=== PATIENT | male | born 1950 | race Hispanic/Latino ===

== ENCOUNTER 2023-11-20 11:04 | Inpatient (IN) | payer MEDICARE ==
[~2023-11-20] VITALS: Ht 172.7 cm; Wt 90.7 kg
[2023-11-20 11:56] LABS: BASOPHILS % 0.5 % (0.0-1.0); EOSINOPHILS # (AUTO) 0.2 (0.0-0.4); EOSINOPHILS % 3.9 % (0.0-6.0); HEMATOCRIT 36.4 % (38.2-49.6); HEMOGLOBIN 12.2 g/dL (14.0-18.0); LYMPHOCYTES # (AUTO) 2.5 (1.0-3.2); LYMPHOCYTES % 42.4 % (18.0-39.1); MEAN CORPUSCULAR HEMOGLOBIN 28.4 pg (28-32); MEAN CORPUSCULAR HGB CONC 33.5 g/dL (31-35); MEAN CORPUSCULAR VOLUME 84.8 fL (81-99); MONOCYTES # (AUTO) 0.3 (0.2-0.8); NEUTROPHILS # (AUTO) 2.9 (2.1-6.9); PLATELET COUNT 152 x10e3/uL (140-360); RED BLOOD COUNT 4.29 x10e6/uL (4.3-5.7); RED CELL DISTRIBUTION WIDTH 13.6 % (11.7-14.4); WHITE BLOOD COUNT 5.95 x10e3/uL (4.8-10.8)
[2023-11-20 12:07] LABS: INR 1.09; PROTHROMBIN TIME 14.9 seconds (11.9-14.5)
[2023-11-20 12:08] LABS: PARTIAL THROMBOPLASTIN TIME 34.8 seconds (23.8-35.5)
[2023-11-20 12:16] LABS: ALBUMIN 4.1 g/dL (3.5-5.0); ALBUMIN/GLOBULIN RATIO 1.1 (0.8-2.0); ANION GAP 17.1 mmol/L (8-16); BILIRUBIN,TOTAL 0.7 mg/dL (0.2-1.2); CALCIUM 9.5 mg/dL (8.4-10.2); CREATININE, SERUM 1.8 mg/dL (0.72-1.25); MAGNESIUM 2.5 MG/DL (1.3-2.1); POTASSIUM 5.1 mmol/L (3.5-5.1); TOTAL PROTEIN 7.8 g/dL (6.5-8.1)
[2023-11-20] MEDS: SODIUM CHLORIDE 0.9% 500ML 500 ML IV ONE (12:17)
[2023-11-20 12:25] LABS: TROPONIN I 0.005 ng/mL (0-0.300)
[2023-11-20] MEDS ORDERED: IOPAMIDOL 370 MG/ML 100 ML INFUS..BTL INJ ONE (12:32)
[2023-11-20] MEDS: SODIUM CHLORIDE 0.9% 1000ML 1,000 ML IV SCH (13:27)
[2023-11-20 13:42] LABS: BILIRUBIN,URINE NEGATIVE (NEGATIVE); CLARITY,URINE CLEAR (CLEAR); COLOR,URINE YELLOW (YELLOW); GLUCOSE, URINE NEGATIVE (NEGATIVE); KETONES,URINE NEGATIVE (NEGATIVE); LEUKOCYTE ESTERASE ,URINE NEGATIVE (NEGATIVE); NITRITE,URINE NEGATIVE (NEGATIVE); PH,URINE 5.5 (5 - 7); PROTEIN,URINE DIPSTICK NEGATIVE (NEGATIVE); URINE UROBILINOGEN 0.2 mg/dL (0.2 - 1)
[2023-11-20 13:43] LABS: BACTERIA,URINE FEW /HPF; EPITHELIAL CELLS,URINE FEW /LPF; RBC,URINE 0-5 /HPF (0-5); WBC,URINE (MAN) 0-5 /HPF (0-5)
[2023-11-20] MEDS ORDERED: Morphine 2mg Syringe 2 MG/ML SYR IV PRN (14:00)
[2023-11-20 15:48] VITALS: BP 121/74; O2SAT 98
[2023-11-20 15:53] VITALS: BP 121/74; TEMP 208.6; O2SAT 98
[2023-11-20 15:58] VITALS: BP 121/74; TEMP 208.6; O2SAT 98
[2023-11-20] MEDS: Morphine 4mg INJECTION 4 MG/ML INJ IV PRN (16:23)
[2023-11-20 16:43] VITALS: BP 102/57; PULSE 67; RESP 16; TEMP 97.8; O2SAT 99
[2023-11-20 20:40] VITALS: BP 108/56; PULSE 71; RESP 18; TEMP 97.5; O2SAT 98
[2023-11-21] VITALS (10 sets, daily range): BP systolic 107–117; BP diastolic 55–65; PULSE 67–77; RESP 17–19; TEMP 97.6–98.4; O2SAT 94–95
[2023-11-21 07:40] LABS: BASOPHILS % 0.2 % (0.0-1.0); EOSINOPHILS # (AUTO) 0.3 (0.0-0.4); EOSINOPHILS % 5.2 % (0.0-6.0); HEMOGLOBIN 11.2 g/dL (14.0-18.0); LYMPHOCYTES # (AUTO) 1.9 (1.0-3.2); LYMPHOCYTES % 38.5 % (18.0-39.1); MEAN CORPUSCULAR HEMOGLOBIN 27.9 pg (28-32); MEAN CORPUSCULAR VOLUME 87.3 fL (81-99); MONOCYTES # (AUTO) 0.2 (0.2-0.8); MONOCYTES % 4.2 % (4.4-11.3); NEUTROPHILS # (AUTO) 2.6 (2.1-6.9); NEUTROPHILS % 51.7 % (38.7-80.0); PLATELET COUNT 139 x10e3/uL (140-360); RED BLOOD COUNT 4.01 x10e6/uL (4.3-5.7); RED CELL DISTRIBUTION WIDTH 13.5 % (11.7-14.4); WHITE BLOOD COUNT 4.96 x10e3/uL (4.8-10.8)
[2023-11-21 07:58] LABS: ALBUMIN 3.6 g/dL (3.5-5.0); ALBUMIN/GLOBULIN RATIO 1.2 (0.8-2.0); ANION GAP 14.7 mmol/L (8-16); BILIRUBIN,TOTAL 0.4 mg/dL (0.2-1.2); CREATININE, SERUM 1.17 mg/dL (0.72-1.25); POTASSIUM 4.7 mmol/L (3.5-5.1); TOTAL PROTEIN 6.5 g/dL (6.5-8.1)
[2023-11-21 08:42] LABS: TROPONIN I 0.006 ng/mL (0-0.300)
[2023-11-21] MEDS: ONDANSETRON HCL INJ 2MG/ML 2ML 2 MG/ML VIAL IV PRN (13:45)
[2023-11-22] VITALS: BP 136/68; PULSE 74; RESP 17; TEMP 97.8; O2SAT 95
[2023-11-22 04:00] VITALS: BP 129/67; PULSE 71; RESP 22; TEMP 97.7; O2SAT 94
[2023-11-22 06:47] LABS: ANION GAP 14.6 mmol/L (8-16); CALCIUM 8.8 mg/dL (8.4-10.2); CREATININE, SERUM 0.95 mg/dL (0.72-1.25); POTASSIUM 4.6 mmol/L (3.5-5.1)
[2023-11-22] MEDS ORDERED: SERTRALINE HCL100 MG PO (07:50)
[2023-11-22] MEDS ORDERED: LISINOPRIL10 MG PO (07:50)
[2023-11-22] MEDS ORDERED: HYDROCODON-ACE1 EAC9 PO (07:50)
[2023-11-22] MEDS ORDERED: [UNRECOGNIZED DRUG - OTHER] PO (07:50)
[2023-11-22] MEDS ORDERED: ABILIFY5 MG PO (07:50)
[2023-11-22] MEDS ORDERED: FOLIC ACID0.4 MG PO (07:50)
[2023-11-22] MEDS ORDERED: FLONASE ALLERG9.9 ML INH (07:50)
[2023-11-22] MEDS ORDERED: METHOTREXATE2.5 MG PO (07:50)
[2023-11-22] MEDS ORDERED: ALPRAZOLAM1 MG PO (07:50)
[2023-11-22] MEDS ORDERED: NEURONTIN300 MG PO (07:50)
[2023-11-22] MEDS ORDERED: ATORVASTATIN CA20 MG PO (07:50)
[2023-11-22] MEDS ORDERED: CYCLOBENZAPRINE10 MG PO (07:50)
[2023-11-22] MEDS ORDERED: FUROSEMIDE40 MG PO (07:50)
[2023-11-22 08:00] VITALS: BP 138/68; PULSE 70; RESP 18; TEMP 97.9; O2SAT 96
[2023-11-22 08:05] VITALS: BP 129/67; PULSE 71; RESP 22; TEMP 97.7; O2SAT 94
[2023-11-22 12:00] VITALS: BP 134/64; PULSE 73; RESP 18; TEMP 98; O2SAT 97
== END 2023-11-22 14:30 | disposition home or self-care (01) | DRG 682 ==
LOC: ER 11:22 → ERHOLD 14:05 → MED/SURG2 14:57
PROVIDERS: ADMIT Internal Medicine; ATTEND Internal Medicine
DX: N17.9 Acute kidney failure, unspecified (principal); G93.41 Metabolic encephalopathy; A09 Infectious gastroenteritis and colitis, unspecified; E86.0 Dehydration; D46.9 Myelodysplastic syndrome, unspecified; K57.30 Diverticulosis of large intestine without perforation or abscess without bleeding; K38.8 Other specified diseases of appendix; F03.90 Unspecified dementia, unspecified severity, without behavioral disturbance, psychotic disturbance, mood disturbance, and anxiety; E11.9 Type 2 diabetes mellitus without complications; I10 Essential (primary) hypertension; I25.10 Atherosclerotic heart disease of native coronary artery without angina pectoris; Z95.5 Presence of coronary angioplasty implant and graft; M06.9 Rheumatoid arthritis, unspecified; Z86.73 Personal history of transient ischemic attack (TIA), and cerebral infarction without residual deficits; Z11.52 Encounter for screening for COVID-19; Z79.899 Other long term (current) drug therapy
CPT/HCPCS: 36415; 70470; 71045; 74177; 80048; 80053; 81001; 82550; 82948; 83735; 83880; 84484; 85025; 85610; 85730; 87040; 87086; 87400; 87420; 93005; 99284; J2270; J2405; J2543; J7030; J7040; Q9967; U0002